=== PATIENT | female | born 1985 ===

== ENCOUNTER 2025-06-05 13:05 | Emergency (ER) | payer OTHER ==
[2025-06-05] MEDS ORDERED: CEFAZOLIN 2 GM VIAL ONE (13:45)
[2025-06-05 13:51] LABS: #Basophils 0.04 10x3/uL (0.0-0.2); #Eosinophils 0.12 10x3/uL (0.0-0.7); #Monocytes 0.65 10x3/uL (0.11-0.59); #Neutrophils 13.07 10x3/uL (1.40-6.50); %Basophils 0.2 % (0.0-1.0); %Eosinophils 0.7 % (0.0-10.0); %Lymphocytes 16.2 % (21.0-51.0); %Monocytes 3.9 % (0.0-10.0); %Neutrophils 78.3 % (42.0-75.0); Hematocrit 29.1 % (36.0-47.0); Hemoglobin 8.5 g/dL (12.0-16.0); Mean Corpuscular Hemoglobin 19.7 pg (27.0-31.0); Mean Corpuscular Volume 67.4 fL (78.0-98.0); Platelet Count 323 10x3/uL (130-400); Red Blood Cell (RBC) Count 4.32 mill/uL (4.20-5.40); White Blood Cell (WBC) Count 16.70 10x3/uL (4.8-10.8)
[2025-06-05 14:02] LABS: ALT (SGPT) 52 U/L (Less than 34); AST (SGOT) 48 U/L (11-34); Albumin 3.8 g/dL (3.1-4.5); Alkaline Phosphatase 75 U/L (40-110); Anion Gap 13 mmol/L (10-20); BUN (Urea Nitrogen) 10 mg/dL (7.0-18.7); Bilirubin, Total 0.3 mg/dL (0.3-1.2); Calc. Creatinine Clearance 0 mL/min (70-130); Calcium 8.6 mg/dL (7.8-10.44); Carbon Dioxide 21 mmol/L (22-29); Chloride 106 mmol/L (98-107); Globulin 3.2 g/dL (2.4-3.5); Glucose 121 mg/dL (70-105); Lipase 50 U/L (8-78); Potassium 3.7 mmol/L (3.5-5.1); Sodium 136 mmol/L (136-145)
[2025-06-05 14:03] LABS: INR-International Normal Ratio 1.1; Prothrombin Time 14.0 sec (12.0-14.7)
[2025-06-05 14:05] LABS: PTT 17.7 sec (22.9-36.1)
[2025-06-05 14:08] LABS: BHCG - Serum Negative (NEGATIVE); Pregs Control Background? CLEAR/WHITE (CLR/WHITE); Pregs Control Bar Appear? YES (CONTROL BAR)
[2025-06-05] MEDS ORDERED: Iopamidol-370 76% 500 ML MDV (1 ML CHARGE) ONE (14:09)
[2025-06-05] MEDS ORDERED: Lidocaine 1% (PF) 30 ML VIAL ONE (14:41)
[2025-06-05] MEDS ORDERED: Cyclobenzaprine 10 MG TAB ONE (16:02)
== END 2025-06-05 16:10 | disposition home or self-care (01) ==
LOC: ERS 13:05
DX: S61.210A Laceration without foreign body of right index finger without damage to nail, initial encounter (principal); S30.11XA Contusion of abdominal wall, initial encounter; S80.10XA Contusion of unspecified lower leg, initial encounter; D53.9 Nutritional anemia, unspecified; Z23 Encounter for immunization; V89.2XXA Person injured in unspecified motor-vehicle accident, traffic, initial encounter; Y93.89 Activity, other specified
CPT/HCPCS: 12002; 36415; 70450; 71045; 71260; 72125; 74177; 80053; 80307; 83605; 83690; 84484; 84703; 85025; 85610; 85730; 90471; 90715; 93005; 94760; 96365; 96375; J2003; J3010; Q9967